=== PATIENT | female | born 1990 | race Caucasian/White ===

== ENCOUNTER 2025-01-01 09:57 | Emergency (ER) | payer OTHER, SELFPAY ==
[2025-01-01 09:59] VITALS: BP 163/91
[2025-01-01 10:15] LABS: Hematocrit 42.3 % (37.0-47.0); Hemoglobin 14.8 g/dL (12.0-16.0); Mean Corp Hgb Conc. 35.0 g/dL (33.0-37.0); Mean Corpuscular Volume 93.4 fL (81.0-99.0); Nucleated Red Blood Cells % 0 %; Platelet Count 394 10^3/uL (130-400); Red Cell Dist. Width 11.3 % (11.5-14.5)
[2025-01-01 10:43] LABS: ALT (SGPT) 26 U/L (0-35); AST (SGOT) 20 U/L (14-36); Albumin 4.7 g/dl (3.5-5.0); Alkaline Phosphatase 64 U/L (38-126); Blood Urea Nitrogen 9 mg/dl (7-17); Calcium 10.1 mg/dl (8.4-10.2); Carbon Dioxide 22 mmol/L (22-30); Chloride 108 mmol/L (98-107); Glucose 102 mg/dl (70-99); Potassium 3.9 mmol/L (3.5-5.1); Sodium 136 mmol/L (135-145); Total Protein 7.6 g/dl (6.3-8.2); eGFR > 60.00
[2025-01-01 10:44] LABS: HCG, Serum Qualitative Screen Positive
[2025-01-01 10:55] VITALS: BP 127/90
[2025-01-01 10:56] VITALS: BMI 30.6
[2025-01-01 11:00] VITALS: BP 135/90
--- NOTE | 2025-01-01 11:54 | ED.GENMED ---
History of Present Illness
General
Chief Complaint: Abnormal Lab Value
Source: patient
Exam Limitations: none
Time Seen by Provider: 01/01/25 11:11
Nursing documentation reviewed up to this point in time: agreed with
History of Present Illness
History of Present Illness:
Patient is a 34-year-old female past with a history of irregular periods presents to the ER for evaluation of vaginal bleeding. Patient reports she is roughly 7-8 weeks . She has not seen her PHARMACY AFFAIRS ASSISTANT but saw her family doctor who did blood
work and assumed she was approximately this far along. Her last menstrual period was in August but again she has a history of irregular periods. She reports this morning she started lightly bleeding. 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 She
denies any abdominal pain or back pain.
This is patient's first .
Patient is scheduled to [facility] January 30, she is scheduled to see nurse practitioner Libra
Past History
Past History
ED Past Medical History: Other (Frequent UTIs, depression)
ED Past Surgical History: Appendectomy and Other (Had a recent upper broken nose 5 years ago)
Social History
Tobacco: Non-smoker
Alcohol: Occasional
Drug: None
Personal: Single
Living: with family
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
Family History
Family History: Other (father with COPD)
Phy Exam
General Physical Exam
General Presentation: no apparent distress
General age: appears stated age
General Skin: warm and dry
General Habitus: normal
General Mental: alert
General Hydration: appears well hydrated
Gastrointestinal Exam
Gastrointestinal Exam: non tender and soft
Genitourinary Exam Female
Exam Female: other (no active vaginal bleeding , OS closed small amt of blood in vaginal vault )
Neurological Exam
Neurological Exam: alert and oriented x3
Musculoskeletal Exam
Musculoskeletal Exam: full ROM
Skin Exam
Skin Exam: normal color and warm/dry
Psychiatric Exam
Psychiatric Exam: normal mood/affect
Course
Orders/Labs/Results
Orders:
Orders
01/01/25 10:02
Test Result ONCE
01/01/25 10:06
Type And Crossmatch [Type+Screen] Urgent
Beta HCG Quantitative Urgent
Comment: ADD ON
Complete Blood Count/With Diff Urgent
Comprehensive Metabolic Panel Urgent
HCG, Serum Qualitative Screen Urgent
01/01/25 11:03
ABO2 Urgent
BBK Wristband Number:
Associate notified that ABO2 has been ordered: [id number]
Date: 01/01/25
Time: 10:12
Director Treasurer ID: [id number]
01/01/25 11:45
Add On- LAB Urgent
Tests Added?: quantitative HCG
01/01/25 11:49
US W Transvaginal Urgent
Reason For Exam: vag bleeding approx 7-8 wks
Abnormal Lab Results
01/01/25
10:06
MCH 32.7 H pg
(27.0-31.0)
RDW 11.3 L %
(11.5-14.5)
Abs Immat Gran (auto) 0.1 H 10^3/uL
(0-0.05)
Absolute Monos (auto) 0.7 H 10^3/uL
(0.1-0.6)
Immature Gran % 0.7 H %
(0-0.5)
Chloride 108 H mmol/L
(98-107)
Glucose 102 H mg/dl
(70-99)
01/01/25 10:06
01/01/25 10:06
Vital Signs
Initial and Last Documented VS:
Initial Vital Signs
Temp Pulse Resp BP Pulse Ox
99.1 F 111 16 163/91 100
01/01/25 09:59 01/01/25 09:59 01/01/25 09:59 01/01/25 09:59 01/01/25 09:59
Last Documented Vital Signs
Temp Pulse Resp BP Pulse Ox
99.1 F 67 14 135/90 100
01/01/25 09:59 01/01/25 11:45 01/01/25 11:45 01/01/25 11:00 01/01/25 11:55
MDM/Problems Addressed
Differential Diagnosis Includes:
Not limited to threatened AB less likely ectopic
MDM/Problems Addressed:
As documented patient is a 34-year-old female who presented with vaginal bleeding starting today. 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 Her last menstrual period was August but she has a history of
irregular periods and she is not scheduled to see her PHARMACY AFFAIRS ASSISTANT at [facility] until January.
Patient presents awake alert no acute distress pelvic exam with no active bleeding os closed. Ultrasound shows an abnormal appearance of the intrauterine sac no pole nor yolk sac with a small subchorionic hemorrhage. Beta is 14,664 she is O
+.
I spoke to [facility] ASSISTANT on-call Dr. Pierce reviewed patient's labs and ultrasound findings and pelvic exam findings with her. She will have the office reach out to her next week and arrange a follow-up ultrasound in the next 7 to 10 days. Will
DC patient with supportive care, rest of heavy lifting no sexual intercourse etc. Discussed to return if any worsening of symptoms.
*Radiology
Radiology exam reviewed: radiology read reviewed
*Pulse Oximetry
SaO2: 100
Oxygen Mode of Delivery: Room air
Patient hypoxic: no
*Critical Care Note
Total Time (30-74mins, 75-104mins- exclusive of procedures): Not Applicable
ED Attending Note
-
Portions of this chart may have been created with voice recognition software.� Occasional wrong word or��sound alike� substitutions may have occurred due to the inherent limitations of voice recognition software.
Discharge Plan
Departure
Patient Disposition: Home (Routine Discharge)
Date of Disposition: 01/01/25
Time of Disposition: 15:59
Patient with high blood pressure during this ER visit?: Yes
Condition: Fair
Covid-19: Not Applicable
Discharge Problem:
Threatened miscarriage
Instructions: Bleeding in early - ED discharge instructions
Prescriptions:
No Action
atomoxetine [Strattera] 60 MG capsule
60 mg PO HS
Control
HS
nitrofurantoin macrocrystal 50 MG capsule
50 mg PO HS
venlafaxine [Effexor] 75 MG tablet
75 mg PO HS
lorazepam 1 MG tablet
1 mg PO HS
Lactobacillus rhamnosus GG 1 EACH capsule
2 ea PO HS
Referrals:
Jaret Vaz CRNP [Family Provider]
Stand Alone Forms: Return to Work
Activity Restrictions/Additional Instructions:
As discussed avoid heavy lifting no sexual intercourse till cleared by PHARMACY AFFAIRS ASSISTANT. If you do not hear by [facility]ARMAC[facility] ASSISTANT tomorrow give the office a call to schedule an appointment if follow-up. You will need follow-up ultrasound. Return if any
worsening of symptoms
Interventions
Interventions:
*Risk Screen - Suicide Last Done: 01/01/25 11:16
*General Assessment Last Done: 01/01/25 11:16
*Neglect/Abuse Screening Last Done: 01/01/25 11:16
*ED- Fall Risk Assessment Last Done: 01/01/25 13:39
*ED COVID-19 Vaccine History Last Done: 01/01/25 10:56
Discharge Date and Time
Print Language: HAITIAN
[2025-01-01 12:49] LABS: Beta HCG Quantitative 14664.00 mIU/ml
[2025-01-01 16:04] VITALS: BP 135/86
== END 2025-01-01 16:40 | disposition home or self-care (01) ==
LOC: EMR 09:57
PROVIDERS: EMERGENCY PHYSICIAN Emergency Medicine
DX: O20.0 Threatened abortion (principal); Z3A.08 8 weeks gestation of pregnancy
CPT/HCPCS: 99284; 76801; 76817; 80053; 84702; 84703; 85025; 86850; 86900; 86901